=== PATIENT | male | born 1965 | race Caucasian/White ===

== ENCOUNTER 2017-11-15 08:10 | Emergency (ER) | payer OTHER ==
[2017-11-15 09:00] LABS: EOSINOPHILS 0.5 % (0.0-3.0); HEMATOCRIT 45.8 % (42.0-52.0); LYMPHOCYTES 7.1 % (24.0-44.0); MCH 31.3 pg (26.0-34.0); MCV 89.7 fL (80.0-100.0); MONOCYTES 5.2 % (1.0-8.0); PLATELET COUNT 276 thou/uL (150-400); POLYS 86.2 % (36.0-66.0); RBC 5.11 mil/uL (4.50-6.00); RDW 16.8 % (10.5-14.5); WBC 10.4 thou/uL (4.0-11.0)
[2017-11-15 09:09] LABS: CALCIUM 7.6 mg/dL (8.5-10.1); CREATININE 1.1 mg/dL (0.7-1.3); POTASSIUM 3.4 mmol/L (3.5-5.1)
[2017-11-15 09:15] LABS: DIRECT BILIRUBIN 0.3 mg/dL (<0.1-0.3); TOTAL BILIRUBIN 1.2 mg/dL (<0.1-1.0); TOTAL PROTEIN 7.5 g/dL (6.4-8.2)
[2017-11-15] MEDS ORDERED: CHLORDIAZEPOXID10 MG PO (09:24)
[2017-11-15 09:29] VITALS: BP 134/82
== END 2017-11-15 10:32 | disposition home or self-care (01) ==
LOC: ER 08:10
PROVIDERS: Emergency Medicine
DX: F10.239 Alcohol dependence with withdrawal, unspecified (principal); E16.2 Hypoglycemia, unspecified; Z48.00 Encounter for change or removal of nonsurgical wound dressing; Z59.0 Homelessness

== ENCOUNTER 2018-10-28 20:34 | Emergency (ER) | payer OTHER ==
[~2018-10-28] VITALS: Ht 177.8 cm; Wt 90.7 kg
[~2018-10-28 20:34] MED LIST: CHLORDIAZEPOXID10 MG PO
[2018-10-28 21:07] LABS: ABSOLUTE NEUTROPHILS 5.7 thou/uL (1.4-8.2); BASOPHILS 0.8 % (0.0-2.0); EOSINOPHILS 4.5 % (0.0-3.0); HEMATOCRIT 45.5 % (42.0-52.0); LYMPHOCYTES 32.1 % (24.0-44.0); MCH 30.9 pg (26.0-34.0); MCHC 35.1 g/dL (28.0-37.0); MCV 87.9 fL (80.0-100.0); MONOCYTES 5.6 % (1.0-8.0); PLATELET COUNT 248 thou/uL (150-400); RBC 5.18 mil/uL (4.50-6.00); RDW 13.6 % (10.5-14.5)
[2018-10-28 21:17] LABS: CALCIUM 8.4 mg/dL (8.5-10.1); POTASSIUM 3.4 mmol/L (3.5-5.1)
[2018-10-28 21:20] LABS: APTT 25.7 Seconds (24.5-32.8); PROTIME 10.5 Seconds (9.3-11.4)
[2018-10-28 21:52] LABS: ALBUMIN 3.8 g/dL (3.4-5.0); DIRECT BILIRUBIN 0.1 mg/dL (<0.1-0.3); TOTAL BILIRUBIN 0.4 mg/dL (<0.1-1.0); TOTAL PROTEIN 6.5 g/dL (6.4-8.2)
[2018-10-29] MEDS ORDERED: KEFLEX500 M1 PO (05:41)
[2018-10-29] MEDS ORDERED: NORCO 5-325 TA1 EACH PO (05:41)
[2018-10-29 06:22] VITALS: BP 166/104
== END 2018-10-29 06:22 | disposition home or self-care (01) ==
LOC: ER 20:34
PROVIDERS: Emergency Medicine
DX: S02.31XA Fracture of orbital floor, right side, initial encounter for closed fracture (principal); I10 Essential (primary) hypertension; F17.210 Nicotine dependence, cigarettes, uncomplicated; Y04.2XXA Assault by strike against or bumped into by another person, initial encounter; Y93.89 Activity, other specified; Y92.89 Other specified places as the place of occurrence of the external cause; Y99.8 Other external cause status

== ENCOUNTER 2018-11-23 17:27 | Inpatient (IN) | payer OTHER ==
[~2018-11-23] VITALS: Ht 177.8 cm; Wt 89.5 kg
[~2018-11-23 17:27] MED LIST changes: +KEFLEX500 M1 PO; +NORCO 5-325 TA1 EACH PO
--- NOTE | 2018-11-23 17:44 | NUR ---
PT REPORTS THAT HE HAS HAS SEIZURES IN PAST DETOXES. SEIZURE PADS APPLIED. PT'S GIRLFRIEND DESCRIBES HIS PAST SEIZURES "STARING OFF INTO SPACE, NO THE FLOPPY KIND." AT WHICH TIME PT STATES, "I'M DOING IT NOW, I'M HAVING A SEIZURE NOW. I FEEL SO SPACEY."
[2018-11-23 17:47] LABS: ABSOLUTE NEUTROPHILS 5.9 thou/uL (1.4-8.2); BASOPHILS 1.2 % (0.0-2.0); EOSINOPHILS 4.5 % (0.0-3.0); HEMATOCRIT 45.2 % (42.0-52.0); HEMOGLOBIN 16.1 gm/dL (14.0-18.0); LYMPHOCYTES 23.3 % (24.0-44.0); MCH 32.1 pg (26.0-34.0); MCHC 35.6 g/dL (28.0-37.0); MCV 90.2 fL (80.0-100.0); MONOCYTES 5.5 % (1.0-8.0); PLATELET COUNT 290 thou/uL (150-400); POLYS 65.5 % (36.0-66.0); RBC 5.01 mil/uL (4.50-6.00); RDW 14.9 % (10.5-14.5)
[2018-11-23 17:56] LABS: CALCIUM 8.7 mg/dL (8.5-10.1); CREATININE 0.9 mg/dL (0.7-1.3); POTASSIUM 3.6 mmol/L (3.5-5.1)
--- NOTE | 2018-11-23 17:56 | NUR ---
PT CAME BACK TO ROOM 8 AFTER HE TALKED WITH GIRLFRIEND
[2018-11-23 18:01] LABS: TOTAL BILIRUBIN 0.8 mg/dL (<0.1-1.0); TOTAL PROTEIN 7.4 g/dL (6.4-8.2)
[2018-11-23 18:04] LABS: ANISOCYTOSIS 1+
[2018-11-23] MEDS ORDERED: CHLORDIAZEPOXID10 MG PO (21:37)
[2018-11-23 22:46] VITALS: BP 135/72
[2018-11-23 23:19] VITALS: BP 115/70
[2018-11-23 23:38] VITALS: BP 143/93
[2018-11-24] VITALS (19 sets, daily range): BP systolic 130–177; BP diastolic 78–116
[2018-11-24 00:18] LABS: MAGNESIUM 1.8 mg/dL (1.8-2.4); PHOSPHORUS 3.1 mg/dL (2.5-4.9)
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
[2018-11-24 09:31] LABS: AMP/METHAMP Negative (Negative); BARBITURATES Negative (Negative); BENZODIAZEPINES POSITIVE (Negative); COCAINE Negative (Negative); METHADONE Negative (Negative); OPIATES Negative (Negative); PCP Negative (Negative)
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
--- NOTE | 2018-11-24 17:53 | NUR ---
ASSUMED CARE AT 0700, SHIFT ASSESSMENT DONE, MEDS GIVEN, VSS. CIWA PER PROTOCOL Q4H, SCORING AT 8. PRN ATIVAN GIVEN PER eMAR. REPORTED PAIN, PRN PAIN MEDS GIVEN. BP WAS ELEVATED THIS AFTERNOON, PRN HYDRALAZINE GIVEN. WILL CONTINUE TO ASSESS AND ASSIST WITH ADLs NEEDED.
[2018-11-25] VITALS (49 sets, daily range): BP systolic 101–167; BP diastolic 59–101
--- NOTE | 2018-11-25 04:07 | NUR ---
RECEIVED PT'S CARE AT 195; PT. ABLE TO TRANSFER TO BED FROM BED; ALERT TO PERSON; TREMORS PRESENT; SWEAT PRESENT OVER FOREHEAD; TEMPERATURE WNL; ST. HEARING VOICES & SEEING SHADOWS; REQUESTED ATIVAN; ST. "IT SEEMS TO BE IT IS THE ONLY THAT HELPS"; PRN ATIVAN GIVEN; CIWA 27; SUPERVISOR BONDING NOTIFIED; ORDERS RECEIVED; PRECEDEX GTT STARTED; PT. CALM; COOPERATIVE; FOLLOW COMMANDS; AT 0300 NOT URINE OUTPUT; BLADDER SCANNER PERFORMED; SHOWED 999 ML; PT. ABLE TO VOID AFTER TRYING TWO TIMES 675 ML; BLADDER SCANNER RESIDUAL 210; MONITORING; ABLE TO REST THROUGH THE NIGHT WITH EYES CLOSE; ASSESSMENT CHARGED; FOLLOWING POC; MONITORING; WILL PASS ON REPORT.
--- NOTE | 2018-11-25 17:36 | NUR ---
URINE RESIDUAL CHECKED AT NOON ADN IT WAS 295MLS. PATIENT HAD NOT HAD URINE OUTPUT SINCE THIS AM. HE WAS STRAIGHT CATH AT 6AM SO UNDERSTANDABLY HIS BLADDER HAS NOT FILLED UP SINCE THEN. HE HAS REFUSED TO EAT OR DRINK UNTIL HE CAN SEE HIS GIRLFRIEND. ENCOURAGED TO AT LEAST DRINK. WILL KEEP IV NS AT THIS TIME. HE IS NOT DRINKING. PER DR YAÑEZ START HYDRALAZINE PRN FOR SBP>170. WILL CONT WITH PLAN OF CARE.
--- NOTE | 2018-11-25 22:19 | NUR ---
ASSUMED CARE OF PT AT 1900. BEFORE PT ASSESSED, PT REQUESTED ATIVAN. WHEN ASSESSED, PT WAS EXTREMELY ANXIOUS, HAD JUST VOMITED, AND WAS REPORTING HALLUCINATIONS. PRECEDEX GTT INCREASED AND PT GIVEN 4 MG OF ATIVAN PER [facility] PROTOCOL. PT IS NOW AT EASE AND SLEEPING.
[2018-11-26] VITALS (34 sets, daily range): BP systolic 98–158; BP diastolic 59–98
--- NOTE | 2018-11-26 07:30 | NUR ---
SINCE PRIOR NOTE, PT HAS BEEN DROWSY AND MODERATELY SEDATED. PT WILL WAKE AT TIMES C/O PAIN AND PAIN MEDS GIVEN PRN. ALSO, CONTINUED TO GIVE ATIVAN PRN. REMAINS ON PRECEDEX GTT. NO MORE EPISODES OF EXTREME ANXIETY AND RESTLESSNESS, THE PT WAS AT THE BEGINNING OF THE NIGHT. WILL CONTINUE TO MONITOR.
--- NOTE | 2018-11-26 10:20 | NUR ---
Pt's girlfriend call back, stated to me that she has his wallet and his bag. She refused to speak to him. Message passed to pt.
--- NOTE | 2018-11-26 10:31 | NUR ---
Pt is worrying about his job and stated he will loose his job if he can't go back to work in a few days from now. He is requesting me to call his boss this morning to let them know about he is being admit in the hospital for detoxication. Unable to reach his boss, left message for them to call back.
--- NOTE | 2018-11-26 19:00 | NUR ---
SHIFT SUMMARY PATIENT'S CIWA SCORE DOWN TO 2-5, TOLERATING DIET WITHOUT NAUSEA OR EMESIS CONTINUALLY REQUESTING THAT WE CALL HIS GIRLFRIEND AND WORK, MESSAGE LEFT AT WORK AND PATIENT INFORMED SEVERAL TIMES THAT WE HAD LEFT MESSAGES, PATIENT WILL STATE "IF I LOSE MY JOB, I WILL JUST HANG MYSELF". ALSO REQUESTING TO SMOKE AND INFORMED THAT WE ARE A SMOKE FREE FACILITY.
[2018-11-27] VITALS (15 sets, daily range): BP systolic 114–150; BP diastolic 65–103
--- NOTE | 2018-11-27 05:06 | NUR ---
ASSUMED PT CARE AT 1900 WITH NO SIGN DISTRESS NOTED. SITTER AT BEDSIDE. PT IS ALERT AND ORIENTED. PT HAD REQUESTED FOR A RAZOR TO SHAVE. PT WAS EDUCATED ON THE NEED OF NOT HAVING TO USE A RAZOR AT THE MOMENT DUE TO BEEN ON SUCIDIAL PRECAUTION. PT VERBALIZES UNDERSTANDING. ASSESSMENT COMPLETED AND CHARTED. VITAL SIGNS STABLE. [facility] PROTOCOL IN PLACE. SCHEDULED MEDS ADMINISTERED TO PT. PT TOLETRATED PO INTAKE. PT GOT AGITATION DURING THE NIGHT STATING THAT HE NEEDED TO BE AT WORK AT 4AM, "YOU NEED TO CALL MY JOB AND LET THEM KNOW WHERE I AM OR ILL GET FIRED" EXPLAINED TO PT THAT HE NEEDED TO BE SEEN BY THE PHYSICIAN. ATIVAN ADMINISTERED NEEDED. DENIES ANY FURTHER NEEDS AT THIS TIME.
--- NOTE | 2018-11-27 11:08 | NUR ---
ASSUMED CARE THIS AM, SUPINE IN BED, AWAKE WITH SEIZURE PADS IN PLACE. NO DISTRESS, COOPERATIVE AND PLEASANT. WANTS TO BE DISCHARGED TODAY SO THAT HE CAN GO BACK TO WORK, WORRIED ABOUT LOSING HIS JOB. SR ON MONITOR AND VITALS WNL. WILL WAIT FOR DIRECTION FROM PSYCHIATRIST.
--- NOTE | 2018-11-27 12:40 | NUR ---
0900: TITRATED PRECEDEX DOWN TO 0.4 MCG/KG/HR OR 8.6ML/HR. CIWA SCORE IS 5. PATIENT VERY CALM AND COOPERATIVE
--- NOTE | 2018-11-27 12:43 | NUR ---
10 AM- TITRATED PRECEDEX DRIP DOWN TO 0.2 MCG/KG/HR OR 4.3ML/HR. PATIENT CIWA SCORE IS 5 AND HE IS CALM AND COOPERATIVE
--- NOTE | 2018-11-27 15:31 | NUR ---
DR. SALAS ASSESSED PATIENT, WILL NOT STOP PATIENT FROM LEAVING HE IS ABLE TO MAKE HIS OWN DECISIONS. DR. YAÑEZ NOTIFIED AND AMA PAPERS SIGNED. PRECEDEX STOPPED AND RIGHT WRIST IV DISCONTINUED. WAITING FOR GIRLFRIEND TO SHOW UP OR FOR HIS CLOTHES TO BE FOUND
== END 2018-11-27 16:45 | disposition home or self-care (01) | DRG 897 ==
LOC: ER 17:27 → 2N 22:01 → EROBS 22:01 → 2N 23:19 → ICU 11-24 19:58
PROVIDERS: Nurse Practitioner Acute Care; Physician Assistant; ADMIT Internal Medicine
DX: F10.239 Alcohol dependence with withdrawal, unspecified (principal); R45.851 Suicidal ideations; I10 Essential (primary) hypertension; Y90.9 Presence of alcohol in blood, level not specified; F17.210 Nicotine dependence, cigarettes, uncomplicated; F32.9 Major depressive disorder, single episode, unspecified; R74.0 Nonspecific elevation of levels of transaminase and lactic acid dehydrogenase [LDH]; F39 Unspecified mood [affective] disorder; M25.531 Pain in right wrist; Z53.21 Procedure and treatment not carried out due to patient leaving prior to being seen by health care provider
CPT/HCPCS: 10078; 10081

== ENCOUNTER 2018-12-15 11:12 | Inpatient (IN) | payer OTHER ==
[~2018-12-15] VITALS: Ht 177.8 cm; Wt 80.7 kg
[2018-12-15 11:29] VITALS: BP 135/91
[2018-12-15 13:10] LABS: ABSOLUTE NEUTROPHILS 4.2 thou/uL (1.4-8.2); BASOPHILS 0.8 % (0.0-2.0); EOSINOPHILS 4.4 % (0.0-3.0); LYMPHOCYTES 28.8 % (24.0-44.0); MCH 32.6 pg (26.0-34.0); MCHC 34.7 g/dL (28.0-37.0); MONOCYTES 6.8 % (1.0-8.0); PLATELET COUNT 266 thou/uL (150-400); POLYS 59.2 % (36.0-66.0); WBC 7.2 thou/uL (4.0-11.0)
[2018-12-15 13:15] LABS: ANION GAP 12 mmol/L (7-16); BUN 4 mg/dL (7-18); CALCIUM 8.3 mg/dL (8.5-10.1); CHLORIDE 106 mmol/L (98-107); CO2 25 mmol/L (21-32); CREATININE 0.8 mg/dL (0.7-1.3); GLUCOSE 120 mg/dL (74-106); POTASSIUM 3.2 mmol/L (3.5-5.1); SODIUM 143 mmol/L (136-145)
[2018-12-15 13:25] LABS: ALBUMIN 3.9 g/dL (3.4-5.0); SALICYLATE 7.4 mg/dL (2.8-20.0); SGOT 63 U/L (15-37); SGPT 62 U/L (30-65); TOTAL BILIRUBIN 0.4 mg/dL (<0.1-1.0); TOTAL PROTEIN 6.8 g/dL (6.4-8.2); TROPONIN-I <0.06 ng/mL (<0.06)
--- NOTE | 2018-12-15 14:28 | NUR ---
AFFIDAVIT FILLED OUT BY SO REGARDING PT SI STATEMENTS, PLACED ON CHART.
[2018-12-15 15:08] LABS: URINE BILIRUBIN NEGATIVE (Negative); URINE BLOOD NEGATIVE (Negative); URINE CLARITY CLEAR; URINE COLOR YELLOW; URINE GLUCOSE-RANDOM* 1+ (Negative); URINE KETONES NEGATIVE (Negative); URINE LEUKOCYTES-REFLEX NEGATIVE (Negative); URINE NITRITE-REFLEX NEGATIVE (Negative); URINE PROTEIN (DIPSTICK) TRACE (Negative); URINE SPECIFIC GRAVITY <= 1.005 (1.005-1.035); URINE UROBILINOGEN 0.2 E.U./dl (0.2-1.0)
[2018-12-15 15:15] LABS: AMP/METHAMP Negative (Negative); BARBITURATES Negative (Negative); BENZODIAZEPINES Negative (Negative); COCAINE Negative (Negative); METHADONE Negative (Negative); OPIATES Negative (Negative); PCP Negative (Negative)
--- NOTE | 2018-12-15 15:45 | NUR ---
RESEARCH PSYCH HORSE RACE STARTER AT BEDSIDE.
--- NOTE | 2018-12-15 22:49 | NUR ---
GIRLFRIEND REPORTS PT CANNOT GO TO [facility] BECAUSE THERE IS A WARRANT FOR HIS ARREST
[2018-12-16] VITALS (9 sets, daily range): BP systolic 145–182; BP diastolic 94–117
[2018-12-16 16:02] LABS: URINE BLOOD NEGATIVE (Negative); URINE CLARITY CLEAR; URINE COLOR YELLOW; URINE GLUCOSE-RANDOM* NEGATIVE (Negative); URINE KETONES 2+ (Negative); URINE LEUKOCYTES NEGATIVE (Negative); URINE NITRITE NEGATIVE (Negative); URINE PROTEIN (DIPSTICK) 2+ (Negative)
[2018-12-16 16:03] LABS: ICTOTEST (BILI CONFIRMATORY) Negative (Negative); URINE BILIRUBIN NEGATIVE (Negative)
[2018-12-16 16:09] LABS: AMP/METHAMP Negative (Negative); BARBITURATES Negative (Negative); BENZODIAZEPINES POSITIVE (Negative); COCAINE Negative (Negative); METHADONE Negative (Negative); OPIATES Negative (Negative); PCP Negative (Negative)
[2018-12-16 16:13] LABS: BACTERIA None Seen /HPF (None Seen); CASTS None Seen /LPF (None Seen); CRYSTALS None Seen /LPF (None Seen); MUCUS >6 Heavy strn/LPF (None Seen); SQUAMOUS 0-3 Few /LPF (0-3); URINE RBC 0-2 Rare /HPF (0-2); URINE WBC None Seen /HPF (0-5)
[2018-12-16 16:53] LABS: ABSOLUTE NEUTROPHILS 8.2 thou/uL (1.4-8.2); BASOPHILS 0.4 % (0.0-2.0); EOSINOPHILS 0.9 % (0.0-3.0); HEMATOCRIT 48.3 % (42.0-52.0); HEMOGLOBIN 16.9 gm/dL (14.0-18.0); LYMPHOCYTES 8.4 % (24.0-44.0); MCH 32.4 pg (26.0-34.0); MCHC 34.9 g/dL (28.0-37.0); MCV 92.6 fL (80.0-100.0); MONOCYTES 4.4 % (1.0-8.0); PLATELET COUNT 228 thou/uL (150-400); POLYS 85.9 % (36.0-66.0); RBC 5.22 mil/uL (4.50-6.00); RDW 16.2 % (10.5-14.5); WBC 9.5 thou/uL (4.0-11.0)
[2018-12-16 17:02] LABS: CALCIUM 9.1 mg/dL (8.5-10.1); CREATININE 0.8 mg/dL (0.7-1.3); POTASSIUM 3.7 mmol/L (3.5-5.1)
[2018-12-16 17:08] LABS: ALBUMIN 3.7 g/dL (3.4-5.0); MAGNESIUM 2.1 mg/dL (1.8-2.4); PHOSPHORUS 2.4 mg/dL (2.5-4.9); TOTAL BILIRUBIN 2.1 mg/dL (<0.1-1.0); TOTAL PROTEIN 7.2 g/dL (6.4-8.2)
[2018-12-16 17:34] LABS: FOLIC ACID 17.2 ng/mL (8.6-58.9)
--- NOTE | 2018-12-16 18:44 | NUR ---
PATIENT ADMITTED FROM VIA THE ER FOR ALCOHOL WITHDRAWAL, PT WITH A GCS OF 14 AND A/O TIMES 2, CIWA OF 21. HE IS AFIBRILE AND VSS. B/P HIGH AND PHYSICIAN AWARE. PT GIVEN ATIVAN. HE IS SETTLED IN ROOM. DENIES ANY CONCERNS AT THIS TIME.
[2018-12-17] VITALS (24 sets, daily range): BP systolic 131–176; BP diastolic 80–113
--- NOTE | 2018-12-17 04:11 | NUR ---
ASSUMED CARE OF PT. AT 1900. PT. IS IS ALERT AND ORIENTED, WITH OCCASIONAL CONFUSION. PT. CIWA SCORES CHARTED. PT. REMAINS ANXIOUS AND WANTS TO LEAVE, PT. HAS BEEN REMINDED THAT HE CANNOT LEAVE. SAFETY HAS BEEN MAINTAINED THROUGHOUT THE SHIFT. PT. HAS SLEPT THROUGH MOST OF THE NIGHT. ASSESSMENTS AND VITAL SIGNS CHARTED. PLAN OF CARE IS TO KEEP PT. IN ICU UNTIL PSYCH SEES PT. WILL CONTINUE TO MONITOR.
--- NOTE | 2018-12-17 13:33 | EKG ---
[address] [place] [address] ELECTROCARDIOGRAM REPORT Name: NICKY RUIZ Room #: 242-P ADM IN M.R.#: [id number] ������������������ Admission: 12/16/18 ������������������ Attend Phys: Jessi Person Discharge: ������������������ Date of : 65 Report #: [id number] ����������������������������������������������������������������� [id number] THIS REPORT FOR: //name// [facility] ED Test Date: 2018-12-15 Test Time: 11:56:50 Pat Name: NICKY RUIZ Department: Room: 242 Gender: M Bleach Analyst: FRANCY : 1965 Requested By: Fadi Carlisle Order Number: [id number] MD: Carlitos Crain Measurements Intervals [place] Rate: 74 P: 66 UT: 194 QRS: 20 QRSD: 100 T: 9 QT: 407 QTc: 452 Interpretive Statements Sinus rhythm Anteroseptal infarct, old No previous ECG available for comparison Electronically Signed On 12-17-2018 13:33:06 CDT by Carlitos Crain [email or web address] ��������������������������������������������� <ELECTRONICALLY SIGNED> ���������������������������������������� By: Carlitos Crain MD, [facility] ��������������������������������������������� 12/17/18 1333 [id number] 1156 Carlitos Crain MD, FACC /EPI
--- NOTE | 2018-12-17 14:57 | NUR ---
ASSUMED CARE THIS AM, PATIENT SLEEPING BUT AWAKES TO VOICE. SLIGHT TREMORS NOTED TO UPPER EXTREMITIES. NO COMPLAINTS OF PAIN OR NAUSEA AT THIS TIME. ORIENTED TO SELF AND TIME AND SITUATION. LIQUID FERTILIZER SERVICER AT BEDSIDE. ALL ITEMS SCRUBBED FROM ROOM AND NO PERSONAL BELONGINGS NEAR. SR ON MONITOR AND VITAL SIGNS WNL
--- NOTE | 2018-12-17 19:15 | NUR ---
CIWA Q4 continues with scores of 9-10. 2 mg ativan effective. started on librium today. status changed to medsur tele and sitter 03/01. waiting for psych assessment. affidavit complete
[2018-12-18 00:01] VITALS: BP 160/94
[2018-12-18 04:00] VITALS: BP 163/104
--- NOTE | 2018-12-18 04:20 | NUR ---
ASSUMED CARE OF PT. AT 0000 FROM [facility]. PT. IS CALM AND SLEEPING IN BED. LAST CIWA SCORE WAS 10. X1 ATIVAN GIVEN AT 0216 FOR AGITATION AND RESTLESSNESS. PT. SINUS TACHYCARDIC TO SINUS BRADYCARDIC ON MONITOR. NICOTINE PATCH ORDERED. ASSESSMENTS AND VITAL SIGNS DOCUMENTED. PLAN OF CARE IS TO KEEP PT. IN ICU UNTIL PSYCH DOCTOR SEES PT. WILL CONTINUE TO MONITOR.
[2018-12-18 06:19] LABS: CALCIUM 8.4 mg/dL (8.5-10.1); CREATININE 0.8 mg/dL (0.7-1.3); MAGNESIUM 1.6 mg/dL (1.8-2.4); PHOSPHORUS 3.2 mg/dL (2.5-4.9); POTASSIUM 3.6 mmol/L (3.5-5.1)
[2018-12-18 08:00] VITALS: BP 164/102
[2018-12-18 12:00] VITALS: BP 166/103
--- NOTE | 2018-12-18 16:49 | NUR ---
Met with patient who reports he is homeless. he lives in a tent behind [address]. He reports his girlfriend thought he had heat stroke and brought him to ER. He reports she said he was talking crazy. Patient reports his tolerance for ETOH has increased. He can consume and couple of shots and then it becomes to need to drink a bottle. he has been at [facility] in past but is not accepted for return. He has been at [facility] in past. no warrants in [place]. He is interested in dc to sober living enviroment. He has been trying to save money to stay in extended motel $1182 a month. He reports girlfriend lives in [place] and he cannot stay with her. He refuses homeless [facility]. He denies SI reports he has no intention or plan to harm himself. Called [employer] at patients request to determine if he has a job at his request. rec answering machine did not leave a message.
--- NOTE | 2018-12-18 17:32 | NUR ---
PT HAS BEEN CALM AND COOPERATIVE ENTIRE SHIFT - SLEPT MOST OF SHIFT - ATE SMALL AMOUNTS OF BREAKFAST AND LUNCH - ATE ENTIRE DINNER - SITTER HAS REMAINED AT BEDSIDE ENTIRE DAY - PENDING INPUT FROM DR. SALAS TO POC - SOCIAL WORK WORKING ON CASE AND PROVIDING POSSIBLE RESOURCES - VSS
[2018-12-18 19:56] VITALS: BP 160/101
[2018-12-19] VITALS: BP 1137/92; BP 137/92
--- NOTE | 2018-12-19 01:37 | NUR ---
ASSESSMENT: PT REMAIN ALERT AND ORIENT TIMES FOUR. RODGERS. C/O GENERALIZED AND LEFT ARM PAIN. PRN PAIN MEDICATIONS GIVEN. SR WY MONITOR. USING URINAL APPROPRIATELY. 1:1 SITTER REMAINS. DENY HALLUCINATIONS, SWEATS AND DOES HAVE SLIGHT TREMORS. PT IS NOT TO HAVE ANY VISITORS PER PSYCH DR. SALAS. SLEEPING WELL, VSS, AFEBRILE. SLOW PROGRESS TOWARDS DC GOALS, WILL CONTINUE TO MONITOR.
[2018-12-19 04:01] VITALS: BP 149/93
[2018-12-19 08:00] VITALS: BP 152/93
[2018-12-19 09:56] LABS: HEMATOCRIT 42.7 % (42.0-52.0); MCH 32.4 pg (26.0-34.0); MCHC 34.8 g/dL (28.0-37.0); MCV 93.1 fL (80.0-100.0); RBC 4.58 mil/uL (4.50-6.00); RDW 16.3 % (10.5-14.5); WBC 7.5 thou/uL (4.0-11.0)
[2018-12-19 10:00] LABS: HEMOGLOBIN 14.8 gm/dL (14.0-18.0)
[2018-12-19 10:06] LABS: CREATININE 0.9 mg/dL (0.7-1.3); POTASSIUM 3.2 mmol/L (3.5-5.1)
[2018-12-19 12:59] VITALS: BP 150/94
--- NOTE | 2018-12-19 15:44 | NUR ---
patient can transfer voluntary to inpatient [facility]. Discussed with patient who adamently does not want to transfer. he reports he has been at [facility] and [facility] and none help they make him feel trapped. He reports he wants to dc to his tent area and secure a job possibly at [employer]. Discussed dc to sober living. He is not welcome back to [facility]. He is aware. Sp with [facility] in [place]. [phone] [facility] reports secure $110 for first week. Cannot be registered sex offender and need 2 forms of ID. Patient aware of options for sober living and will go to [facility] in future but now anxious to dc. [facility] information left with RN to give to patient. Notified psychiatry and hospitalist no plan dc today. Patients girlfriend has his wallet and clothes. Updated RN
[2018-12-19 15:54] VITALS: BP 150/94
--- NOTE | 2018-12-19 16:57 | NUR ---
ASSUMED CARE THIS AM, SLEEPING BUT AWAKES TO VOICE. NO COMPLAINTS OF PAIN OR NAUSEA OR HEADACHE. CIWA 2. DESIGN DRAFTSMAN PRESENT. SR/SB ON MONITOR. VERY PLEASANT AND COOPERATIVE. 1100: GIRLFRIEND SUSAN CALLED AND ASKED THAT WE NOT LET HIM USE A PHONE BECAUSE SHE NEEDS A BREAK. SPOKE WITH PATIENT AND HE WAS UPSET THAT SHE DIDN'T WANT TO TALK TO HIM. REFUSED LUNCH AND MEDS. AROUND 1400 HE WAS FEELING BETTER AND ATE HIS LUNCH AND TOOK HIS MEDS. 1630 TRANSFERRED TO ROOM 351. HE WAS TOLD THAT HE WILL NOT BE GOING HOME TODAY BUT MAYBE TOMORROW. HE IS OPEN TO [facility]BER LIVING [facility] BUT DOES NOT HAVE THE 110$ TO GET IN. STATES WHEN HE LEAVES HERE HE WILL BE WALKING BECAUSE GIRLFRIEND WILL NOT COME GET HIM. TRANSFERRED IN STABLE CONDITION AND OFF OF SUICIDE PRECAUTIONS.
--- NOTE | 2018-12-19 18:22 | NUR ---
pt transfered from ICU about 1700pm for ETOH withdrawal, pt has improved,pt is A&O X3, PT has a good dinner, pt denies pain, n/v at this time.Alochol withdrawal assessment scores 3, RN will report to next shift to keep eye on the pt.
[2018-12-19 19:35] VITALS: BP 146/101
[2018-12-20 04:10] VITALS: BP 155/102
--- NOTE | 2018-12-20 04:50 | NUR ---
PT SHOWERED AND SHAVED LAST NOC, WAS REQUESTING 3 RAZORS BUT WAS ABLE TO TALK TO HIM TO USE ONLY 1 RAZOR SINCE HE JUST WAS DIAGNOSED WITH SI, UP WITH STANDBY ASSIST, GAIT STEADY, DENIES PAIN NOR HEADACHE, PT TOLERATING ORAL INTAKE, ON TELE, SB TO SR, TALKING ABOUT HOW HE FIND A PLACE TO LIVE WHERE THEY DON'T REQUIRE DOWN PAYMENT/DEPOSIT, SAID HE NEED TO BE OUT OF HERE AROUND 10:00 TODAY SO HE CAN BE AT THIS NEW PLACE TO FILL UP PAPERS, HOURLY ROUNDING, AWAS NORMAL, MONITORED.
[2018-12-20 07:21] VITALS: BP 147/96
[2018-12-20] MEDS ORDERED: CHLORDIAZEPOXID25 M1 PO (08:51)
--- NOTE | 2018-12-20 10:38 | NUR ---
patient a/p x4. no disdresss noted. dc to home at 0900.
--- NOTE | 2018-12-20 12:11 | NUR ---
DISCHARGE NOTE: RON reviewed chart and spoke with nursing and attending physician. Pt transferred to 3W from ICU and is medically stable for discharge today. Pt has been provided with Health Resource Guides and info on Sober living facilities. Pt discharged home earlier today. SW is available to assist should needs arise.
== END 2018-12-20 09:00 | disposition home or self-care (01) | DRG 178 ==
LOC: ER 11:12 → ICU 12-16 15:50 → EROBS 12-16 15:50 → ICU 12-16 16:05 → 3W 12-19 16:57
PROVIDERS: Emergency Medicine; ADMIT Hospitalist
DX: J69.0 Pneumonitis due to inhalation of food and vomit (principal); F10.230 Alcohol dependence with withdrawal, uncomplicated; R45.851 Suicidal ideations; I10 Essential (primary) hypertension; E87.6 Hypokalemia; F29 Unspecified psychosis not due to a substance or known physiological condition; F17.210 Nicotine dependence, cigarettes, uncomplicated; Z79.899 Other long term (current) drug therapy
CPT/HCPCS: 10078; 10203; 10879